=== PATIENT | female | born 1940 | race Caucasian/White ===

== ENCOUNTER 2017-01-13 10:26 | Emergency (ER) | payer MEDICARE ==
[~2017-01-13 10:26] MED LIST: ALEVE220 MG PO; ARICEPT5 PO; ASAB PO; CALCIUM; FISH-EPA1000 MG PO; FLONASE NAS; LEVOTHYROXIN25 MCG PO; MULTIPLE VIT PO; NAMENDA10 MG PO; NAMENDA5 PO; TRAZ50 PO; VITAMIN D1000 UNI1 PO; ZOCOR40 PO; ZOL50 PO; [UNRECOGNIZED DRUG - OTHER] PO; [UNRECOGNIZED DRUG - OTHER] PO
== END 2017-01-13 12:22 | disposition home or self-care (01) ==
LOC: ER 10:26
DX: S09.90XA Unspecified injury of head, initial encounter (principal); S16.1XXA Strain of muscle, fascia and tendon at neck level, initial encounter; S39.012A Strain of muscle, fascia and tendon of lower back, initial encounter; W19.XXXA Unspecified fall, initial encounter
CPT/HCPCS: 70450; 72040; 72100; 99284